=== PATIENT | male | born 1960 | race African-American/Black ===

== ENCOUNTER 2021-01-30 11:53 | Inpatient (IN) | payer MEDICARE ==
[2021-01-30] MEDS ORDERED: Acetaminophen 325 MG TAB ONE (12:16)
[2021-01-30] MEDS ORDERED: Vancomycin HCl 500 MG VIAL ONE ×2 (12:17→14:02)
[2021-01-30] MEDS ORDERED: Cefepime 2 GM VIAL ONE (12:17)
[2021-01-30 12:47] LABS: #Basophils 0.1 10x3/uL (0.0-0.2); #Eosinphils 0.3 10x3/uL (0.0-0.5); #Monocytes 0.9 10x3/uL (0.0-1.1); #Neutrophils 10.1 10x3/uL (1.5-8.4); %Basophils 0.6 % (0.0-2.0); %Eosinophils 1.9 % (0.0-6.0); %Lymphocytes 20.7 % (18.0-47.0); %Monocytes 6.3 % (0.0-10.0); %Neutrophils 69.8 % (40.0-75.0); Hemoglobin 8.7 g/dL (13.5-17.5); Mean Corpuscular HGB CONC 31.4 g/dL (32.0-36.0); Mean Corpuscular Hemoglobin 28.2 pg (27.0-33.0); Mean Corpuscular Volume 89.6 fl (81.2-95.1); Platelet Count 134 10x3/uL (150-450); RBC Distribution Width 14.7 % (11.5-14.5); Red Blood Cell (RBC) Count 3.09 10x6/uL (4.32-5.72); White Blood Cell (WBC) Count 14.4 10x3/uL (3.5-10.5)
[2021-01-30 12:55] LABS: ALT (SGPT) 18 U/L (8-55); AST (SGOT) 15 U/L (5-34); Albumin 3.4 g/dL (3.5-5.0); Alkaline Phosphatase 66 U/L (40-110); Anion Gap 15 mmol/L (10-20); BUN (Urea Nitrogen) 84 mg/dL (8.4-25.7); Bilirubin, Total 0.3 mg/dL (0.2-1.2); Calc. Creatinine Clearance 0 mL/min (70-130); Calcium 9.6 mg/dL (7.8-10.44); Carbon Dioxide 27 mmol/L (22-29); Chloride 118 mmol/L (98-107); Glucose 198 mg/dL (70-105); Magnesium 2.9 mg/dL (1.6-2.6); Potassium 5.1 mmol/L (3.5-5.1); Protein, Total 7.4 g/dL (6.0-8.3); Sodium 155 mmol/L (136-145)
[2021-01-30 13:11] LABS: Bilirubin Neg (Negative); Blood, Urine Negative (Negative); Clarity Slightly Cloudy (Clear); Glucose, Urine (Dipstick) Normal (Negative); Ketone, Urine Negative (Negative); Leukocyte Negative (Negative); Nitrite Negative (Negative); Protein, Urine (Dipstick) Negative (Neg-Trace); Urobilinogen Normal mg/dL (Less than 2)
[2021-01-30 13:17] LABS: CKMB 0.3 ng/mL (0-6.6)
[2021-01-30] MEDS ORDERED: Ondansetron PF 4 MG/2 ML Vial IVP PRN (13:59)
[2021-01-30] MEDS ORDERED: Bisacodyl 10 MG SUPP PR PRN (13:59)
[2021-01-30] MEDS ORDERED: HumaLOG 300 UNITS/3 ML VIAL SC PRN (13:59)
[2021-01-30] MEDS ORDERED: Dextrose 50% Abboject 50 ML SYRINGE SLOW IVP PRN (13:59)
[2021-01-30] MEDS ORDERED: Sodium Chloride 0.65% Nasal 44 ML BOT EA NARE PRN (14:01)
[2021-01-30] MEDS ORDERED: Artificial Tear Sol 15 ML BOT EA EYE PRN (14:01)
[2021-01-30] MEDS ORDERED: Hydrocerin (Eucerin) Cream 120 gm Jar TOP PRN (14:01)
[2021-01-30] MEDS ORDERED: Cepastat Lozenges 1 LOZ PO PRN (14:01)
[2021-01-30] MEDS ORDERED: hydrALAZINE 20 MG/ML VIAL SLOW IVP PRN (14:01)
[2021-01-30 15:23] LABS: Troponin I 0.094 ng/mL (< 0.028)
[2021-01-30 17:06] LABS: SARS-CoV-2 NAA Rapid Test Not Detected (NotDetected)
[2021-01-30 19:11] LABS: Troponin I 0.094 ng/mL (< 0.028)
[2021-01-30 20:58] VITALS: BMI 22.6
[2021-01-30] MEDS ORDERED: Sodium Chloride 0.45% 500 ML IV SCH (21:00)
[2021-01-31] MEDS: Cefepime 1 GM in Sodium Chloride 0.9% 100 ML IVPB SCH ×2 (00:29→15:21)
[2021-01-31] MEDS: Dextrose 5% in Water 1,000 ML IV SCH ×2 (00:30→21:55)
[2021-01-31 06:48] LABS: ALT (SGPT) 14 U/L (8-55); AST (SGOT) 14 U/L (5-34); Albumin 2.9 g/dL (3.5-5.0); Alkaline Phosphatase 51 U/L (40-110); Anion Gap 13 mmol/L (10-20); BUN (Urea Nitrogen) 63 mg/dL (8.4-25.7); Bilirubin, Total 0.5 mg/dL (0.2-1.2); Calc. Creatinine Clearance 63 mL/min (70-130); Calcium 8.5 mg/dL (7.8-10.44); Carbon Dioxide 22 mmol/L (22-29); Chloride 120 mmol/L (98-107); Globulin 3.5 g/dL (2.4-3.5); Glucose 207 mg/dL (70-105); Potassium 4.9 mmol/L (3.5-5.1); Protein, Total 6.4 g/dL (6.0-8.3); Sodium 150 mmol/L (136-145)
[2021-01-31 06:50] LABS: #Basophils 0.1 10x3/uL (0.0-0.2); #Eosinphils 0.6 10x3/uL (0.0-0.5); #Monocytes 0.9 10x3/uL (0.0-1.1); %Basophils 0.4 % (0.0-2.0); %Eosinophils 4.2 % (0.0-6.0); %Lymphocytes 16.8 % (18.0-47.0); %Monocytes 6.2 % (0.0-10.0); %Neutrophils 71.6 % (40.0-75.0); Hemoglobin 7.4 g/dL (13.5-17.5); Mean Corpuscular HGB CONC 31.8 g/dL (32.0-36.0); Mean Corpuscular Volume 91.4 fl (81.2-95.1); Platelet Count 108 10x3/uL (150-450); RBC Distribution Width 14.6 % (11.5-14.5); Red Blood Cell (RBC) Count 2.55 10x6/uL (4.32-5.72)
[2021-01-31] MEDS ORDERED: FLU VACC QS2021-22(6MOS UP)/PF 60 MCG/0.5 ML SYRINGE IM ONE (09:00)
[2021-01-31] MEDS: Pantoprazole 40 MG VIAL IVP SCH (11:40)
[2021-01-31] MEDS: Enoxaparin Sodium 40 MG/0.4 ML SYRINGE SC SCH (11:40)
[2021-01-31] MEDS: HumaLOG 300 UNITS/3 ML VIAL SC PRN (11:42)
[2021-01-31] MEDS ORDERED: Vancomycin HCl 1 GM in Sodium Chloride 0.9% 250 ML 250 ML IVPB SCH (14:00)
[2021-01-31] MEDS: Sodium Chloride 0.45% 1,000 ML IV SCH (15:21)
[2021-01-31] MEDS: Vancomycin HCl 1 GM in Sodium Chloride 0.9% 250 ML 250 ML IVPB SCH (20:23)
[2021-02-01] MEDS: Cefepime 1 GM in Sodium Chloride 0.9% 100 ML IVPB SCH ×2 (00:54→13:12)
[2021-02-01] MEDS: Sodium Chloride 0.45% 1,000 ML IV SCH (06:32)
[2021-02-01] MEDS: HumaLOG 300 UNITS/3 ML VIAL SC PRN (06:33)
[2021-02-01] MEDS: Pantoprazole 40 MG VIAL IVP SCH (09:02)
[2021-02-01] MEDS: Enoxaparin Sodium 40 MG/0.4 ML SYRINGE SC SCH (09:22)
[2021-02-01 09:28] LABS: #Eosinphils 0.4 10x3/uL (0.0-0.5); #Monocytes 0.7 10x3/uL (0.0-1.1); #Neutrophils 4.3 10x3/uL (1.5-8.4); %Basophils 0.5 % (0.0-2.0); %Eosinophils 5.4 % (0.0-6.0); %Lymphocytes 25.3 % (18.0-47.0); %Monocytes 9.1 % (0.0-10.0); %Neutrophils 58.5 % (40.0-75.0); Hemoglobin 7.9 g/dL (13.5-17.5); Mean Corpuscular HGB CONC 31.9 g/dL (32.0-36.0); Mean Corpuscular Volume 87.9 fl (81.2-95.1); Platelet Count 119 10x3/uL (150-450); RBC Distribution Width 14.3 % (11.5-14.5); Red Blood Cell (RBC) Count 2.82 10x6/uL (4.32-5.72); White Blood Cell (WBC) Count 7.3 10x3/uL (3.5-10.5)
[2021-02-01 09:36] LABS: ALT (SGPT) 12 U/L (8-55); AST (SGOT) 17 U/L (5-34); Alkaline Phosphatase 57 U/L (40-110); Anion Gap 13 mmol/L (10-20); BUN (Urea Nitrogen) 32 mg/dL (8.4-25.7); Bilirubin, Total 0.4 mg/dL (0.2-1.2); Calc. Creatinine Clearance 84 mL/min (70-130); Carbon Dioxide 20 mmol/L (22-29); Chloride 117 mmol/L (98-107); Globulin 3.7 g/dL (2.4-3.5); Glucose 130 mg/dL (70-105); Potassium 4.2 mmol/L (3.5-5.1); Protein, Total 6.7 g/dL (6.0-8.3); Sodium 146 mmol/L (136-145)
[2021-02-01] MEDS ORDERED: Pantoprazole 40 MG VIAL ONE (11:01)
[2021-02-01] MEDS: Dextrose 5% in Water 1,000 ML IV SCH ×3 (16:52→22:58)
[2021-02-01 19:07] LABS: Vancomycin, Trough 10.2 ug/mL
[2021-02-01] MEDS ORDERED: Sodium Chloride 0.9% 250 ML 250 ML ONE (20:29)
[2021-02-01] MEDS: Vancomycin HCl 1 GM in Sodium Chloride 0.9% 250 ML 250 ML IVPB SCH (20:36)
[2021-02-02] MEDS: Cefepime 1 GM in Sodium Chloride 0.9% 100 ML IVPB SCH ×2 (00:20→13:18)
[2021-02-02] MEDS: Dextrose 5% in Water 1,000 ML IV SCH ×4 (05:30→20:43)
[2021-02-02] MEDS: Sodium Chloride 0.45% 1,000 ML IV SCH ×2 (05:31→22:52)
[2021-02-02] MEDS: HumaLOG 300 UNITS/3 ML VIAL SC PRN ×2 (06:11→17:19)
[2021-02-02] MEDS: Pantoprazole 40 MG VIAL IVP SCH (09:12)
[2021-02-02] MEDS: Enoxaparin Sodium 40 MG/0.4 ML SYRINGE SC SCH (09:22)
[2021-02-02] MEDS ORDERED: VANCOMYCIN 1.25 GM/250 ML BAG 1.25 GM in Premix Bag 1 BAG IVPB SCH (20:00)
[2021-02-02] MEDS: Vancomycin HCl 1 GM in Sodium Chloride 0.9% 250 ML 250 ML IVPB SCH (20:36)
[2021-02-02] MEDS ORDERED: Metoprolol Tartrate 25 MG TAB PER TUBE SCH (22:30)
[2021-02-03] MEDS: Cefepime 1 GM in Sodium Chloride 0.9% 100 ML IVPB SCH ×2 (00:27→13:25)
[2021-02-03] MEDS: HumaLOG 300 UNITS/3 ML VIAL SC PRN (05:06)
[2021-02-03 06:54] LABS: Anion Gap 15 mmol/L (10-20); BUN (Urea Nitrogen) 20 mg/dL (8.4-25.7); Calc. Creatinine Clearance 79 mL/min (70-130); Carbon Dioxide 21 mmol/L (22-29); Chloride 110 mmol/L (98-107); Glucose 163 mg/dL (70-105); Potassium 4.5 mmol/L (3.5-5.1); Sodium 141 mmol/L (136-145)
[2021-02-03 07:16] LABS: Hemoglobin 8.2 g/dL (13.5-17.5); Mean Corpuscular HGB CONC 31.5 g/dL (32.0-36.0); Mean Corpuscular Hemoglobin 27.7 pg (27.0-33.0); Mean Corpuscular Volume 87.8 fl (81.2-95.1); Mean Platelet Volume 13.6 fl (7.4-10.4); Platelet Count 154 10x3/uL (150-450); Red Blood Cell (RBC) Count 2.96 10x6/uL (4.32-5.72); White Blood Cell (WBC) Count 7.3 10x3/uL (3.5-10.5)
[2021-02-03 07:59] LABS: Band 5 % (5-11); Eosinophils 5 % (0-10); Lymphocytes 22 % (21-51); Metamyelocyte 1 % (0-0); Monocytes 8 % (0-10); Myelocyte 1 % (0-0); Neutrophil 51 % (42-75); Nucleated RBC 1 % (0); Reactive Lymphocytes 7 % (0-10)
[2021-02-03 08:01] LABS: Anisocytosis MODERATE=16-30 cells (100X) (0-5/hpf); Macrocytosis SLIGHT = 6-15 cells (100X) (0-5/hpf); Microcytosis SLIGHT = 6-15 cells (100X) (0-5/hpf); Polychromasia SLIGHT = 2-3 cells (100X) (0-2/hpf)
[2021-02-03 08:03] LABS: Large Platelets MODERATE; MDiff Complete? YES; Platelet Morphology Comment Appears Adequate
[2021-02-03] MEDS: Dextrose 5% in Water 1,000 ML IV SCH (09:20)
[2021-02-03] MEDS: Pantoprazole 40 MG VIAL IVP SCH (09:29)
[2021-02-03] MEDS: Enoxaparin Sodium 40 MG/0.4 ML SYRINGE SC SCH (09:29)
[2021-02-03] MEDS: Acetaminophen 325 MG TAB PO PRN (20:36)
[2021-02-03] MEDS: Vancomycin HCl 1 GM in Sodium Chloride 0.9% 250 ML 250 ML IVPB SCH (20:36)
[2021-02-03] MEDS: levETIRAcetam 500 MG TAB PO SCH (20:37)
[2021-02-03] MEDS: Sodium Chloride 0.45% 1,000 ML IV SCH (20:50)
[2021-02-04] MEDS: Cefepime 1 GM in Sodium Chloride 0.9% 100 ML IVPB SCH ×3 (00:10→23:42)
[2021-02-04] MEDS: Enoxaparin Sodium 40 MG/0.4 ML SYRINGE SC SCH (09:55)
[2021-02-04] MEDS: Pantoprazole 40 MG VIAL IVP SCH (09:55)
[2021-02-04] MEDS: levETIRAcetam 500 MG TAB PO SCH ×2 (09:55→21:23)
[2021-02-04] MEDS: HumaLOG 300 UNITS/3 ML VIAL SC PRN (17:51)
[2021-02-04] MEDS: Sodium Chloride 0.45% 1,000 ML IV SCH (18:08)
[2021-02-04 19:33] LABS: Vancomycin, Trough 16.9 ug/mL
[2021-02-04] MEDS: Vancomycin HCl 1 GM in Sodium Chloride 0.9% 250 ML 250 ML IVPB SCH (21:22)
[2021-02-04] MEDS ORDERED: Cefepime 1 GM VIAL ONE (23:40)
[2021-02-05 05:56] LABS: Anion Gap 13 mmol/L (10-20); BUN (Urea Nitrogen) 20 mg/dL (8.4-25.7); Calc. Creatinine Clearance 87 mL/min (70-130); Carbon Dioxide 20 mmol/L (22-29); Chloride 108 mmol/L (98-107); Glucose 163 mg/dL (70-105); Potassium 4.4 mmol/L (3.5-5.1); Sodium 137 mmol/L (136-145)
[2021-02-05] MEDS: HumaLOG 300 UNITS/3 ML VIAL SC PRN (06:16)
[2021-02-05] MEDS: Pantoprazole 40 MG VIAL IVP SCH (08:51)
[2021-02-05] MEDS: Enoxaparin Sodium 40 MG/0.4 ML SYRINGE SC SCH (08:51)
[2021-02-05] MEDS: levETIRAcetam 500 MG TAB PO SCH ×2 (08:52→23:24)
[2021-02-05] MEDS: Sodium Chloride 0.45% 1,000 ML IV SCH (08:52)
[2021-02-05] MEDS: Cefepime 1 GM in Sodium Chloride 0.9% 100 ML IVPB SCH ×2 (12:48→23:24)
[2021-02-05] MEDS: Acetaminophen 325 MG TAB PO PRN (12:48)
[2021-02-05] MEDS: Vancomycin HCl 1 GM in Sodium Chloride 0.9% 250 ML 250 ML IVPB SCH (23:24)
[2021-02-06] MEDS: Sodium Chloride 0.45% 1,000 ML IV SCH (04:54)
[2021-02-06] MEDS: HumaLOG 300 UNITS/3 ML VIAL SC PRN (06:07)
[2021-02-06 06:13] LABS: Hemoglobin 7.6 g/dL (13.5-17.5); Mean Corpuscular HGB CONC 33.6 g/dL (32.0-36.0); Mean Corpuscular Hemoglobin 27.9 pg (27.0-33.0); Mean Corpuscular Volume 83.1 fl (81.2-95.1); Mean Platelet Volume 12.6 fl (7.4-10.4); Platelet Count 161 10x3/uL (150-450); RBC Distribution Width 14.3 % (11.5-14.5); Red Blood Cell (RBC) Count 2.72 10x6/uL (4.32-5.72); White Blood Cell (WBC) Count 7.2 10x3/uL (3.5-10.5)
[2021-02-06 07:20] LABS: Anion Gap 15 mmol/L (10-20); BUN (Urea Nitrogen) 16 mg/dL (8.4-25.7); Calc. Creatinine Clearance 86 mL/min (70-130); Carbon Dioxide 19 mmol/L (22-29); Chloride 107 mmol/L (98-107); Glucose 173 mg/dL (70-105); Potassium 4.8 mmol/L (3.5-5.1); Sodium 136 mmol/L (136-145)
[2021-02-06] MEDS: levETIRAcetam 500 MG TAB PO SCH ×2 (08:49→21:18)
[2021-02-06] MEDS: Enoxaparin Sodium 40 MG/0.4 ML SYRINGE SC SCH (08:49)
[2021-02-06] MEDS: Pantoprazole 40 MG VIAL IVP SCH (08:50)
[2021-02-06] MEDS: Cefepime 1 GM in Sodium Chloride 0.9% 100 ML IVPB SCH (14:18)
[2021-02-06] MEDS: Vancomycin HCl 1 GM in Sodium Chloride 0.9% 250 ML 250 ML IVPB SCH (21:15)
[2021-02-07] MEDS: Cefepime 1 GM in Sodium Chloride 0.9% 100 ML IVPB SCH ×2 (00:09→13:29)
[2021-02-07] MEDS: Sodium Chloride 0.45% 1,000 ML IV SCH (04:23)
[2021-02-07] MEDS: HumaLOG 300 UNITS/3 ML VIAL SC PRN ×2 (04:24→13:28)
[2021-02-07] MEDS: Enoxaparin Sodium 40 MG/0.4 ML SYRINGE SC SCH (10:04)
[2021-02-07] MEDS: levETIRAcetam 500 MG TAB PO SCH ×2 (10:04→20:13)
[2021-02-07] MEDS: Pantoprazole 40 MG VIAL IVP SCH (10:05)
[2021-02-07 14:59] LABS: SARS-CoV-2 PCR by NAA Not Detected (NotDetected)
[2021-02-07 19:15] LABS: Vancomycin, Trough 23.5 ug/mL
[2021-02-07 19:16] LABS: BUN (Urea Nitrogen) 18 mg/dL (8.4-25.7); Calc. Creatinine Clearance 88 mL/min (70-130)
[2021-02-07] MEDS: Vancomycin HCl 1 GM in Sodium Chloride 0.9% 250 ML 250 ML IVPB SCH (20:14)
[2021-02-08] MEDS: Cefepime 1 GM in Sodium Chloride 0.9% 100 ML IVPB SCH ×2 (01:23→14:49)
[2021-02-08] MEDS: Sodium Chloride 0.45% 1,000 ML IV SCH (01:24)
[2021-02-08 06:01] LABS: BUN (Urea Nitrogen) 17 mg/dL (8.4-25.7); Calc. Creatinine Clearance 84 mL/min (70-130)
[2021-02-08] MEDS: Enoxaparin Sodium 40 MG/0.4 ML SYRINGE SC SCH (08:53)
[2021-02-08] MEDS: Pantoprazole 40 MG VIAL IVP SCH (08:53)
[2021-02-08] MEDS: levETIRAcetam 500 MG TAB PO SCH ×2 (08:53→20:55)
[2021-02-08] MEDS: Vancomycin HCl 750 MG in Sodium Chloride 0.9% 250 ML 250 ML IVPB SCH (20:55)
[2021-02-09] MEDS: Cefepime 1 GM in Sodium Chloride 0.9% 100 ML IVPB SCH ×2 (03:30→13:07)
[2021-02-09] MEDS: Sodium Chloride 0.45% 1,000 ML IV SCH ×2 (03:56→15:32)
[2021-02-09 05:16] LABS: Anion Gap 13 mmol/L (10-20); BUN (Urea Nitrogen) 18 mg/dL (8.4-25.7); Calc. Creatinine Clearance 88 mL/min (70-130); Calcium 9.2 mg/dL (7.8-10.44); Carbon Dioxide 22 mmol/L (22-29); Chloride 106 mmol/L (98-107); Glucose 178 mg/dL (70-105); Potassium 4.8 mmol/L (3.5-5.1); Sodium 136 mmol/L (136-145)
[2021-02-09] MEDS: Pantoprazole 40 MG VIAL IVP SCH (08:26)
[2021-02-09] MEDS: Enoxaparin Sodium 40 MG/0.4 ML SYRINGE SC SCH (08:26)
[2021-02-09] MEDS: levETIRAcetam 500 MG TAB PO SCH ×2 (08:27→21:14)
[2021-02-09 19:27] LABS: Vancomycin, Trough 20.5 ug/mL
[2021-02-09] MEDS: Vancomycin HCl 750 MG in Sodium Chloride 0.9% 250 ML 250 ML IVPB SCH (20:33)
[2021-02-10] MEDS: Cefepime 1 GM in Sodium Chloride 0.9% 100 ML IVPB SCH (00:21)
[2021-02-10 08:22] LABS: #Eosinphils 0.4 10x3/uL (0.0-0.5); #Monocytes 0.7 10x3/uL (0.0-1.1); %Basophils 0.4 % (0.0-2.0); %Eosinophils 4.5 % (0.0-6.0); %Lymphocytes 21.1 % (18.0-47.0); %Monocytes 8.7 % (0.0-10.0); %Neutrophils 61.6 % (40.0-75.0); Hemoglobin 8.2 g/dL (13.5-17.5); Mean Corpuscular HGB CONC 33.2 g/dL (32.0-36.0); Mean Corpuscular Hemoglobin 27.8 pg (27.0-33.0); Mean Corpuscular Volume 83.7 fl (81.2-95.1); Platelet Count 236 10x3/uL (150-450); RBC Distribution Width 14.7 % (11.5-14.5); Red Blood Cell (RBC) Count 2.95 10x6/uL (4.32-5.72); White Blood Cell (WBC) Count 8.2 10x3/uL (3.5-10.5)
[2021-02-10 08:38] LABS: Anion Gap 13 mmol/L (10-20); BUN (Urea Nitrogen) 21 mg/dL (8.4-25.7); Calc. Creatinine Clearance 86 mL/min (70-130); Calcium 9.2 mg/dL (7.8-10.44); Carbon Dioxide 22 mmol/L (22-29); Chloride 106 mmol/L (98-107); Glucose 184 mg/dL (70-105); Potassium 5.3 mmol/L (3.5-5.1); Sodium 136 mmol/L (136-145)
[2021-02-10] MEDS: Pantoprazole 40 MG VIAL IVP SCH (09:35)
[2021-02-10] MEDS: Enoxaparin Sodium 40 MG/0.4 ML SYRINGE SC SCH (09:35)
[2021-02-10] MEDS: levETIRAcetam 500 MG TAB PO SCH ×2 (09:35→21:22)
[2021-02-10] MEDS: Sodium Chloride 0.45% 1,000 ML IV SCH (09:59)
[2021-02-11] MEDS: HumaLOG 300 UNITS/3 ML VIAL SC PRN ×2 (03:03→06:41)
[2021-02-11] MEDS: Sodium Chloride 0.45% 1,000 ML IV SCH ×2 (06:39→21:20)
[2021-02-11] MEDS: Enoxaparin Sodium 40 MG/0.4 ML SYRINGE SC SCH (09:28)
[2021-02-11] MEDS: Pantoprazole 40 MG VIAL IVP SCH (09:28)
[2021-02-11] MEDS ORDERED: levETIRAcetam 100 mg/ml Oral Solution PO SCH (09:30)
[2021-02-11] MEDS: levETIRAcetam 500 MG TAB PO SCH (09:30)
[2021-02-11 10:35] LABS: Anion Gap 15 mmol/L (10-20); BUN (Urea Nitrogen) 18 mg/dL (8.4-25.7); Calc. Creatinine Clearance 93 mL/min (70-130); Calcium 9.7 mg/dL (7.8-10.44); Carbon Dioxide 22 mmol/L (22-29); Chloride 105 mmol/L (98-107); Glucose 130 mg/dL (70-105); Potassium 5.2 mmol/L (3.5-5.1); Sodium 137 mmol/L (136-145)
[2021-02-11] MEDS: levETIRAcetam 100 mg/ml Oral Solution PO SCH (20:56)
[2021-02-12 08:25] LABS: #Basophils 0.1 10x3/uL (0.0-0.2); #Eosinphils 0.5 10x3/uL (0.0-0.5); #Monocytes 0.9 10x3/uL (0.0-1.1); #Neutrophils 4.5 10x3/uL (1.5-8.4); %Basophils 0.6 % (0.0-2.0); %Eosinophils 6.3 % (0.0-6.0); %Lymphocytes 24.6 % (18.0-47.0); %Monocytes 10.8 % (0.0-10.0); %Neutrophils 53.8 % (40.0-75.0); Mean Corpuscular HGB CONC 31.9 g/dL (32.0-36.0); Mean Corpuscular Hemoglobin 27.6 pg (27.0-33.0); Mean Corpuscular Volume 86.5 fl (81.2-95.1); Mean Platelet Volume 11.3 fl (7.4-10.4); Platelet Count 251 10x3/uL (150-450); RBC Distribution Width 14.9 % (11.5-14.5); Red Blood Cell (RBC) Count 3.26 10x6/uL (4.32-5.72); White Blood Cell (WBC) Count 8.4 10x3/uL (3.5-10.5)
[2021-02-12 08:36] LABS: Anion Gap 15 mmol/L (10-20); BUN (Urea Nitrogen) 20 mg/dL (8.4-25.7); Calc. Creatinine Clearance 90 mL/min (70-130); Calcium 9.6 mg/dL (7.8-10.44); Carbon Dioxide 24 mmol/L (22-29); Chloride 105 mmol/L (98-107); Glucose 192 mg/dL (70-105); Potassium 4.7 mmol/L (3.5-5.1); Sodium 139 mmol/L (136-145)
[2021-02-12] MEDS: Enoxaparin Sodium 40 MG/0.4 ML SYRINGE SC SCH (08:50)
[2021-02-12] MEDS: levETIRAcetam 100 mg/ml Oral Solution PO SCH ×2 (08:50→19:54)
[2021-02-12] MEDS: Pantoprazole 40 MG VIAL IVP SCH (08:50)
[2021-02-12] MEDS: HumaLOG 300 UNITS/3 ML VIAL SC PRN (11:57)
[2021-02-12] MEDS: Sodium Chloride 0.45% 1,000 ML IV SCH (18:40)
[2021-02-13] MEDS: HumaLOG 300 UNITS/3 ML VIAL SC PRN (06:55)
[2021-02-13] MEDS: Enoxaparin Sodium 40 MG/0.4 ML SYRINGE SC SCH (10:29)
[2021-02-13] MEDS: Pantoprazole 40 MG VIAL IVP SCH (10:30)
[2021-02-13] MEDS: levETIRAcetam 100 mg/ml Oral Solution PO SCH ×2 (10:30→21:21)
[2021-02-13] MEDS: Sodium Chloride 0.45% 1,000 ML IV SCH (21:35)
[2021-02-14] MEDS: HumaLOG 300 UNITS/3 ML VIAL SC PRN ×2 (05:14→16:21)
[2021-02-14] MEDS: levETIRAcetam 100 mg/ml Oral Solution PO SCH ×2 (09:48→20:22)
[2021-02-14] MEDS: Enoxaparin Sodium 40 MG/0.4 ML SYRINGE SC SCH (09:48)
[2021-02-14] MEDS: Pantoprazole 40 MG VIAL IVP SCH (09:49)
[2021-02-14] MEDS: Sodium Chloride 0.45% 1,000 ML IV SCH (17:22)
[2021-02-15] MEDS: Pantoprazole 40 MG VIAL IVP SCH (10:54)
[2021-02-15] MEDS: Enoxaparin Sodium 40 MG/0.4 ML SYRINGE SC SCH (10:54)
[2021-02-15] MEDS: levETIRAcetam 100 mg/ml Oral Solution PO SCH (10:55)
[2021-02-15] MEDS: Sodium Chloride 0.45% 1,000 ML IV SCH (15:10)
[2021-02-15 15:39] VITALS: BP 129/70; TEMP 99.4
== END 2021-02-15 13:20 | DRG 871 ==
LOC: CSHERS 11:53 → CSHTELE 20:10
PROVIDERS: ADMIT Internal Medicine; ATTEND Internal Medicine
DX: A41.9 Sepsis, unspecified organism (principal); E43 Unspecified severe protein-calorie malnutrition; E87.0 Hyperosmolality and hypernatremia; I69.351 Hemiplegia and hemiparesis following cerebral infarction affecting right dominant side; N17.9 Acute kidney failure, unspecified; Z20.822 Contact with and (suspected) exposure to COVID-19; Z86.16 Personal history of COVID-19; R40.4 Transient alteration of awareness; E78.5 Hyperlipidemia, unspecified; I10 Essential (primary) hypertension; E11.65 Type 2 diabetes mellitus with hyperglycemia; Z89.512 Acquired absence of left leg below knee; R65.20 Severe sepsis without septic shock; Z68.22 Body mass index [BMI] 22.0-22.9, adult; D63.8 Anemia in other chronic diseases classified elsewhere; G40.909 Epilepsy, unspecified, not intractable, without status epilepticus; S41.101A Unspecified open wound of right upper arm, initial encounter; R05.3 Chronic cough; Z93.1 Gastrostomy status; E87.5 Hyperkalemia; Z79.84 Long term (current) use of oral hypoglycemic drugs; Z79.890 Hormone replacement therapy; Z79.899 Other long term (current) drug therapy; I69.391 Dysphagia following cerebral infarction; R13.10 Dysphagia, unspecified; I69.320 Aphasia following cerebral infarction; Z74.01 Bed confinement status
CPT/HCPCS: 36415; 36416; 70450; 71045; 71250; 80048; 80053; 80202; 81003; 82553; 82565; 83605; 83735; 84484; 84520; 85025; 85027; 87040; 87070; 87077; 87086; 87186; 87205; 93005; 94760; 96365; 96366; 96375; C9113; J0692; J1650; J1815; J3370; J3490; J7050; J7070; U0002; U0003; U0005